=== PATIENT | male | born 1955 | race Caucasian/White ===

== ENCOUNTER 2017-02-15 10:47 | Emergency (ER) | payer OTHER ==
[2017-02-15 11:45] LABS: BASO # 0.1 10_X3_uL (0.0-0.1); EOS # 0.1 10_X3_uL (0.0-0.5); EOS % 2.3 % (0.8-7.0); GRAN # 2.5 10_X3_uL (1.8-5.4); GRAN % 41.3 % (34.0-67.9); HEMATOCRIT 42.8 % (40-51); HEMOGLOBIN 15.2 g/dL (13.7-17.5); LYMPH # 2.6 10_X3_uL (1.3-3.6); LYMPH % 43.7 % (21.8-53.1); MEAN CORPUSCULAR HEMOGLOBIN 30.3 pg (27.0-33.0); MEAN CORPUSCULAR HGB CONC 35.5 g/dL (32.0-36.0); MEAN CORPUSCULAR VOLUME 85.3 fL (79-92); MEAN PLATELET VOLUME 9.4 fl (7.5-11.5); MONO # 0.7 10_X3_uL (0.3-0.8); MONO % 11.7 % (5.3-12.2); PLATELET COUNT 257 x10_3/uL (163-337); RED BLOOD COUNT 5.02 x10_6/uL (4.6-6.1); RED CELL DISTRIBUTION WIDTH 13.2 % (11.6-14.4)
[2017-02-15 11:53] LABS: BLOOD UREA NITROGEN 15 mg/dL (7-18); CALCIUM 9.1 mg/dL (8.7-10.7); CARBON DIOXIDE 24 mmol/L (21-32); CREATININE 0.9 mg/dL (0.6-1.3); GLUCOSE,RANDOM 121 mg/dL (70-99); POTASSIUM 4.3 mmol/L (3.5-5.1); SODIUM 139 mmol/L (136-145)
== END 2017-02-15 12:50 | disposition home or self-care (01) ==
LOC: ER 10:47
PROVIDERS: General Practice
DX: R42 Dizziness and giddiness (principal); R51 Headache; H83.90 Unspecified disease of inner ear, unspecified ear; I25.2 Old myocardial infarction; I25.10 Atherosclerotic heart disease of native coronary artery without angina pectoris; I10 Essential (primary) hypertension; J44.9 Chronic obstructive pulmonary disease, unspecified; M19.90 Unspecified osteoarthritis, unspecified site; H66.90 Otitis media, unspecified, unspecified ear; R53.1 Weakness; Z87.891 Personal history of nicotine dependence; Z88.8 Allergy status to other drugs, medicaments and biological substances
CPT/HCPCS: 36415; 70450; 80048; 85025; 93005; 99284-25